=== PATIENT | male | born 1975 | race African-American/Black ===

== ENCOUNTER 2016-10-27 07:52 | Inpatient (IN) | payer OTHER ==
[2016-10-27] VITALS (7 sets, daily range): BP systolic 122–194; BP diastolic 77–113; PULSE 78–104; RESP 14–16; TEMP 98–98.4; O2SAT 92–100
[~2016-10-27] VITALS: Ht 185.4 cm; Wt 98.0 kg
[2016-10-27] MEDS ORDERED: SODIUM CHLOR 0.9% 1000 ML INJ 1,000 ML IV ONE ×2 (07:59→08:29)
[2016-10-27] MEDS ORDERED: SODIUM CHLORIDE 0.9% FLUSH 5 ML FLUSH IVF PRN (08:00)
--- NOTE | 2016-10-27 08:06 | PD ---
HPI Chief Complaint: hyperglycemia Time Seen by Provider: 07:54 Travel History International Travel<30 days: No Contact w/Intl Traveler<30days: No Traveled to known affect area: No History of Present Illness HPI The patient is a 41-year-old after Ethiopian male who presents emergency department via EMS for hyperglycemia and possible seizure. According to EMS the patient is on vacation from [place], [place], and forgot his insulin. The patient then had seizure-like activity, according to family, prior to arrival. When EMS arrived they stated the patient was postictal and his glucose read as "high". The patient states he cannot recall what type of insulin or the dose of the insulin he takes, but does note a history of diabetes. He also notes a history of hypertension, but cannot recall the name of his antihypertensive medication. The patient does currently complain of a headache, but denies any photophobia, visual changes, or neck pain. The patient denies any chest pain came and shortness of breath, nausea, vomiting, or abdominal pain. The patient does have a history of bilateral lower extremity surgeries with partial amputation of the feet bilaterally. The symptoms are moderate, there are no known alleviating or exacerbating factors. [facility] Past Medical History Narrative Medical Diabetes, hypertension Past Surgical History Narrative Surgical Bilateral partial foot amputation Social History Alcohol Use: No Tobacco Use: No Substance Use: No Allergies-Medications (Allergen,Severity, Reaction): Coded Allergies: No Known Allergies (Unverified , 10/27/16) Reported Meds & Prescriptions Reported Meds & Active Scripts Active Reported Hydralazine (Hydralazine HCl) 50 Mg Tab 50 Mg PO BID Take with a meal Phenergan (Promethazine HCl) 25 Mg Tab 25 Mg PO ONCE Novolog Inj (Insulin Aspart) 1,000 Unit/10 Ml Vial 1 Units SQ ONCE Levemir Inj (Insulin Detemir) 1,000 unit/ 10 ML Vial 10 Units SQ BID Do not mix with any other Insulin. Review of Systems Except as stated in HPI: all other systems reviewed are Neg General / Constitutional: No: Fever Eyes: No: Blurred Vision, Photophobia HENT: Positive: Headaches, No: Neck Pain Cardiovascular: No: Chest Pain or Discomfort Respiratory: No: Shortness of Breath Gastrointestinal: No: Nausea, Vomiting, Abdominal Pain Musculoskeletal: Positive: Other (bilateral partial foot amputation's), No: Weakness Neurologic: Positive: Headache, Seizures (possible seizure earlier today according to EMS, denies history of seizures) Physical Exam Narrative GENERAL: Awake, slightly postictal, 41-year-old Susan male who appears his stated age and is in no acute respiratory distress. SKIN: Warm and dry. HEAD: Atraumatic. Normocephalic. EYES: Pupils equal and round. Pupils are 3 mm bilateral reactive. EOMs are intact. Patient is able to see fingers at a distance of 2 feet without difficulty. ENT: No nasal bleeding or discharge. Mucous membranes pink and moist. NECK: Trachea midline. No JVD. CARDIOVASCULAR: Regular rate and rhythm. No murmur appreciated. RESPIRATORY: No accessory muscle use. Clear to auscultation. Breath sounds equal bilaterally. GASTROINTESTINAL: Abdomen soft, non-tender, nondistended. No rebound tenderness. MUSCULOSKELETAL: Bilateral lower extremity partial foot amputation's. Patient is able flex the hips and knees bilaterally. Patient has full use of the upper extremities. NEUROLOGICAL: Awake and alert. No obvious cranial nerve deficits. Motor grossly within normal limits. Normal speech. Patient is oriented to person and place, but cannot recall the year or his current medications. PSYCHIATRIC: Appropriate mood and affect; insight and judgment normal. Data Data Last Documented VS Vital Signs Date Time Temp Pulse Resp B/P Pulse Ox O2 Delivery O2 Flow Rate FiO2 10/27/16 09:00 98.0 98 16 194/109 92 Room Air Orders Electrocardiogram (10/27/16 07:59) Complete Blood Count With Diff (10/27/16 07:59) Comprehensive Metabolic Panel (10/27/16 07:59) Magnesium (Mg) (10/27/16 07:59) Beta Hydroxybutyrate (Acetone) (10/27/16 07:59) Lactic Acid (10/27/16 07:59) Urinalysis - C+S If Indicated (10/27/16 07:59) Chest, Single Ap (10/27/16 07:59) Blood Gas Venous (Vbg) (10/27/16 07:59) Blood Glucose (10/27/16 07:59) Blood Glucose (10/27/16 08:59) Ecg Monitoring (10/27/16 07:59) Iv Access Insert/Monitor (10/27/16 07:59) Oximetry (10/27/16 07:59) NPO (10/27/16 07:59) Sodium Chlor 0.9% 1000 Ml Inj (Ns 1000 M (10/27/16 07:59) Sodium Chlor 0.9% 1000 Ml Inj (Ns 1000 M (10/27/16 08:29) Sodium Chloride 0.9% Flush (Ns Flush) (10/27/16 08:00) Troponin I (10/27/16 07:59) Lipase (10/27/16 07:59) Ct Brain W/O Iv Contrast(Rout) (10/27/16 ) Insulin Human Regular Inj (Novolin R Inj (10/27/16 09:15) ^ Notify Dr: Other (10/27/16 09:06) Bedside Glucose .As Directed (10/27/16 09:06) ^ Hypoglycemia Cc <80 Mg/Dl (10/27/16 09:06) Insulin Regular (Iv Infusion) (Novolin R (10/27/16 09:15) Dextrose 50% In [place] (Vial) Inj (D50w (Vi (10/27/16 09:15) Misc Information (10/27/16 09:15) Admit Order (Ed Use Only) (10/27/16 09:35) Labs Laboratory Tests Test 10/27/16 10/27/16 08:10 09:20 White Blood Count 4.9 TH/MM3 Red Blood Count 3.96 MIL/MM3 Hemoglobin 10.9 GM/DL Hematocrit 32.3 % Mean Corpuscular Volume 81.5 FL Mean Corpuscular Hemoglobin 27.6 PG Mean Corpuscular Hemoglobin 33.8 % Concent Red Cell Distribution Width 13.4 % Platelet Count 197 TH/MM3 Mean Platelet Volume 10.5 FL Neutrophils (%) (Auto) 62.4 % Lymphocytes (%) (Auto) 23.7 % Monocytes (%) (Auto) 10.8 % Eosinophils (%) (Auto) 2.2 % Basophils (%) (Auto) 0.9 % Neutrophils # (Auto) 3.0 TH/MM3 Lymphocytes # (Auto) 1.2 TH/MM3 Monocytes # (Auto) 0.5 TH/MM3 Eosinophils # (Auto) 0.1 TH/MM3 Basophils # (Auto) 0.0 TH/MM3 CBC Comment DIFF FINAL Differential Comment Blood Gas Puncture Site RW Blood Gas Patient Temperature 98.6 Venous Blood pH 7.37 Venous Blood Partial Pressure 45 mmHg CO2 Venous Blood Partial Pressure 62 mmHg O2 Venous Blood HCO3 26 mmol/L Venous Blood Oxygen Saturation 88 % Venous Blood Oxygen Content 14.0 Vol % Venous Blood Base Excess 1.0 mmol/L Oxygen Delivery Device RA Sodium Level 130 MEQ/L Potassium Level 3.8 MEQ/L Chloride Level 92 MEQ/L Carbon Dioxide Level 25.7 MEQ/L Anion Gap 12 MEQ/L Blood Urea Nitrogen 26 MG/DL Creatinine 2.37 MG/DL Estimat Glomerular Filtration 30 ML/MIN Rate Random Glucose 705 MG/DL Lactic Acid Level 3.3 mmol/L Calcium Level 7.8 MG/DL Magnesium Level 2.1 MG/DL Total Bilirubin 0.3 MG/DL Aspartate Amino Transf 10 U/L (AST/SGOT) Alanine Aminotransferase 13 U/L (ALT/SGPT) Alkaline Phosphatase 152 U/L Troponin I 0.02 NG/ML Total Protein 5.6 GM/DL Albumin 2.1 GM/DL Lipase 362 U/L B-Hydroxybutyrate 0.13 MMOL/L Urine Color STRAW Urine Turbidity CLEAR Urine pH 6.5 Urine Specific [place] 1.016 Urine Protein 300 mg/dL Urine Glucose (UA) 1000 mg/dL Urine Ketones NEG mg/dL Urine Occult Blood TRACE Urine Nitrite NEG Urine Bilirubin NEG Urine Urobilinogen LESS THAN 2.0 MG/DL Urine Leukocyte Esterase NEG Urine RBC 1 /hpf Urine WBC 1 /hpf Microscopic Urinalysis Comment CULT NOT INDICATED Urine Opiates Screen NEG Urine Barbiturates Screen NEG Urine Amphetamines Screen NEG Urine Benzodiazepines Screen NEG Urine Cocaine Screen NEG Urine Cannabinoids Screen NEG MDM Medical Decision Making Medical Screen Exam Complete: Yes Emergency Medical Condition: Yes Medical Record Reviewed: Yes Interpretation(s) EKG reveals sinus rhythm with a rate in 99. Nonspecific T wave changes. Laboratory Tests Test 10/27/16 08:10 White Blood Count 4.9 TH/MM3 Red Blood Count 3.96 MIL/MM3 Hemoglobin 10.9 GM/DL Hematocrit 32.3 % Mean Corpuscular Volume 81.5 FL Mean Corpuscular Hemoglobin 27.6 PG Mean Corpuscular Hemoglobin 33.8 % Concent Red Cell Distribution Width 13.4 % Platelet Count 197 TH/MM3 Mean Platelet Volume 10.5 FL Neutrophils (%) (Auto) 62.4 % Lymphocytes (%) (Auto) 23.7 % Monocytes (%) (Auto) 10.8 % Eosinophils (%) (Auto) 2.2 % Basophils (%) (Auto) 0.9 % Neutrophils # (Auto) 3.0 TH/MM3 Lymphocytes # (Auto) 1.2 TH/MM3 Monocytes # (Auto) 0.5 TH/MM3 Eosinophils # (Auto) 0.1 TH/MM3 Basophils # (Auto) 0.0 TH/MM3 CBC Comment DIFF FINAL Differential Comment Blood Gas Puncture Site RW Blood Gas Patient Temperature 98.6 Venous Blood pH 7.37 Venous Blood Partial Pressure 45 mmHg CO2 Venous Blood Partial Pressure 62 mmHg O2 Venous Blood HCO3 26 mmol/L Venous Blood Oxygen Saturation 88 % Venous Blood Oxygen Content 14.0 Vol % Venous Blood Base Excess 1.0 mmol/L Oxygen Delivery Device RA Sodium Level 130 MEQ/L Potassium Level 3.8 MEQ/L Chloride Level 92 MEQ/L Carbon Dioxide Level 25.7 MEQ/L Anion Gap 12 MEQ/L Blood Urea Nitrogen 26 MG/DL Creatinine 2.37 MG/DL Estimat Glomerular Filtration 30 ML/MIN Rate Random Glucose 705 MG/DL Lactic Acid Level 3.3 mmol/L Calcium Level 7.8 MG/DL Magnesium Level 2.1 MG/DL Total Bilirubin 0.3 MG/DL Aspartate Amino Transf 10 U/L (AST/SGOT) Alanine Aminotransferase 13 U/L (ALT/SGPT) Alkaline Phosphatase 152 U/L Troponin I 0.02 NG/ML Total Protein 5.6 GM/DL Albumin 2.1 GM/DL Lipase 362 U/L B-Hydroxybutyrate 0.13 MMOL/L Differential Diagnosis Differential diagnosis includes new onset seizure, hyperglycemia, hypoglycemia, intracranial hemorrhage, dehydration, syncope, arrhythmia. Narrative Course IV was established, labs were drawn and sent, and the patient was placed on cardiac telemetry monitoring and continuous pulse oximetry monitoring. EKG was ordered and interpreted. CT the brain was ordered. Bedside Accu-Chek read "high", therefore, the patient was administered 2 L of IV fluids. VBG was obtained. VBG is unremarkable, no evidence of acidosis. Beta hydroxy and gap are normal, not DKA. However, patient's sugar was over 700, therefore, patient was administered insulin intravenously and will be placed on a not DKA insulin drip. I believe once the patient's sugars are less than 300 and he receives his normal insulin dose and is able to eat, patient can go home. His creatinine was elevated at 2.37, however, he has a history of renal insufficiency and has been seen by nephrology in the past. I discussed the patient with the on-call physicians who agrees with admission. Physician Communication Physician Communication The patient was placed on insulin drip, therefore, will need ICU. The on-call residents were paged, discussed the patient with Dr. Montes who agrees with admission. Diagnosis Primary Impression: Hyperglycemia due to type 1 diabetes mellitus Additional Impressions: Chronic renal insufficiency Qualified Code: N18.9 - Chronic renal insufficiency, unspecified stage Seizure Admitting Information Admitting Physician Requests: Admit Condition: Stable Jonatan Moreno MD Oct 27, 2016 08:06
[2016-10-27 08:14] LABS: BLOOD GAS VENOUS HCO3 26 mmol/L (22-26); BLOOD GAS VENOUS O2 HGB SAT 88 % (70-76); BLOOD GAS VENOUS PCO2 45 mmHg (44-48); BLOOD GAS VENOUS PO2 62 mmHg (35-40); BLOOD GAS VENOUS pH 7.37 (7.360-7.400); CRITICAL VALUE NO; DRAW SITE RW; OXYGEN DEVICE RA; STAT YES; TEMP CORR TO 98.6
[2016-10-27 08:30] LABS: BASOPHIL % 0.9 % (0.0-2.0); EOSINOPHIL # 0.1 TH/MM3 (0-0.4); EOSINOPHIL % 2.2 % (0.0-4.0); HEMATOCRIT 32.3 % (39.0-51.0); HEMO FLAGS DIFF FINAL; LYMPH % 23.7 % (9.0-44.0); LYMPHOCYTE # 1.2 TH/MM3 (1.0-4.8); MEAN CELL VOLUME 81.5 FL (80.0-100.0); MEAN CORPUSCULAR HEMOGLOBIN 27.6 PG (27.0-34.0); MEAN CORPUSCULAR HGB CONC 33.8 % (32.0-36.0); MONO % 10.8 % (0.0-8.0); NEUT % 62.4 % (16.0-70.0); PLATELET COUNT 197 TH/MM3 (150-450); RED BLOOD COUNT 3.96 MIL/MM3 (4.50-5.90); RED CELL DISTRIBUTION WIDTH 13.4 % (11.6-17.2); WHITE BLOOD COUNT 4.9 TH/MM3 (4.0-11.0)
--- NOTE | 2016-10-27 08:35 | RADRPT ---
EXAM DATE/TIME: 10/27/2016 08:21 [facility] COMPARISON: No previous studies available for comparison. INDICATIONS : Syncopal episode today MEDICAL HISTORY : None. SURGICAL HISTORY : None. ENCOUNTER: Initial ACUITY: 1 day PAIN SCORE: 0/10 LOCATION: Bilateral chest FINDINGS: A single view of the chest demonstrates the lungs to be symmetrically aerated without evidence of mas s, infiltrate or effusion. The cardiomediastinal contours are unremarkable. Osseous structures are intact. CONCLUSION: Normal examination. Wil Wyman MD on October 27, 2016 at 8:33 Board Certified Radiologist. This report was verified electronically.
[2016-10-27 08:52] LABS: ALKALINE PHOSPHATASE 152 U/L (45-117); ALT (GPT) 13 U/L (12-78); ANION GAP 12 MEQ/L (5-15); AST (GOT) 10 U/L (15-37); BETA-HYDROXYBUTYRATE 0.13 MMOL/L (0.00-0.39); BICARBONATE 25.7 MEQ/L (21.0-32.0); BLOOD UREA NITROGEN 26 MG/DL (7-18); CHLORIDE 92 MEQ/L (98-107); GLOMERULAR FILTRATION RATE 30 ML/MIN (>89); MAGNESIUM 2.1 MG/DL (1.5-2.5); POTASSIUM 3.8 MEQ/L (3.5-5.1); SODIUM (NA) 130 MEQ/L (136-145); TOTAL BILIRUBIN ADULT 0.3 MG/DL (0.2-1.0)
--- NOTE | 2016-10-27 08:59 | RADRPT ---
EXAM DATE/TIME: 10/27/2016 08:27 [facility] COMPARISON: No previous studies available for comparison. INDICATIONS : New onset of seizures, headache. RADIATION DOSE: 47.98 CTDIvol (mGy) MEDICAL HISTORY : Diabetes mellitus type 2. Hypertension. SURGICAL HISTORY : None. ENCOUNTER: Initial ACUITY: 1 day PAIN SCALE: 3/10 LOCATION: Bilateral frontal TECHNIQUE: Multiple contiguous axial images were obtained of the head. Using automated exposure control and adj ustment of the mA and/or kV according to patient size, radiation dose was kept as low as reasonably a chievable to obtain optimal diagnostic quality images. FINDINGS: CEREBRUM: The ventricles are normal for age. No evidence of midline shift, mass lesion, hemorrhage or acute in farction. No extra-axial fluid collections are seen. POSTERIOR FOSSA: The cerebellum and brainstem are intact. The 4th ventricle is midline. The cerebellopontine angle i s unremarkable. EXTRACRANIAL: The visualized portion of the orbits is intact. SKULL: The calvaria is intact. No evidence of skull fracture. CONCLUSION: Normal examination. Wil Wyman MD on October 27, 2016 at 8:58 Board Certified Radiologist. This report was verified electronically.
[2016-10-27] MEDS ORDERED: PROM25TA5 PO (09:07)
[2016-10-27] MEDS ORDERED: HYDR50TA15 PO (09:07)
[2016-10-27] MEDS ORDERED: NOVOLOGP2 SQ (09:07)
[2016-10-27] MEDS ORDERED: LEVEMIR SQ (09:07)
[2016-10-27] MEDS ORDERED: DEXTROSE 50% IN WATER 50 ML VIAL(D50) IV PUSH PRN ×3 (09:15→14:00)
[2016-10-27] MEDS ORDERED: MISC INFORMATION XX ONE (09:15)
[2016-10-27] MEDS ORDERED: INSULIN HUMAN REGULAR 1,000 UNITS/10 ML VIAL IV PUSH ONE (09:15)
[2016-10-27] MEDS ORDERED: INSULIN REGULAR (IV INFUSION) 100 UNITS in SODIUM CHLORIDE 0.9% INJ 99 ML IV SCH (09:15)
[2016-10-27 09:43] LABS: BLOOD, URINE TRACE (NEG); GLUCOSE,URINE 1000 mg/dL (NEG); KETONE, URINE NEG (NEG); NITRITE,URINE NEG (NEG); PH, URINE 6.5 (5.0-8.5)
[2016-10-27 09:45] LABS: COMMENT (UR) CULT NOT INDICATED; CULTURE IF INDICATED CULT NOT INDICATED; URINE COLOR STRAW (YELLW/STRAW)
--- NOTE | 2016-10-27 09:50 | HHI.HP ---
[facility] Service Family Medicine Primary Care Physician Non-Staff Admission Diagnosis hypoglycemia, BGgreater than 700, chronic renal insufficiency, seiz Diagnoses: Chief Complaint: Seizure International Travel<30 Days: No Contact w/Intl Traveler<30days: No Known Affected Area: No History of Present Illness Patient is a 41-year-old male with a past medical history significant for type 2 diabetes mellitus and hypertension who presents today via [facility] for seizure and hyperglycemia. Patient states that he had a headache last night before he went to bed. Sometime after he woke up this morning, he thought his sugar was low and so he drank a glass of orange juice. He did not check his sugar this morning before drinking a glass of orange juice. He had last checked his sugar the night before and found it to be around 219. After drinking a glass of orange juice, he felt dizzy and went to the bedroom to lay down. His states that he had difficulty making it to the bedroom. Sometime after he laid down, his daughter found him to be tremoring, tensed up, and non-responsive. This lasted for 2 full minutes per the patient's . She states that he was "shaking all over" and that his arms were also tensed. He did not lose function of bowel or bladder and he did not bite his tongue. He was confused after the episode. The last thing he remembers is making breakfast after drinking his orange juice. He did not have any chest pain, palpitations, shortness of breath, nausea, or vomiting. Of note, he had a similar seizure 6 years ago that he and his attribute to hypoglycemia. He did not take any of his medications today. Patient states that he is poorly compliant with his insulin and his diet. His poorly-controlled diabetes has led to amputation of all of his toes. Review of Systems Constitutional: COMPLAINS OF: Fatigue, DENIES: Fever, Chills Eyes: DENIES: Blurred vision Ears, nose, mouth, throat: DENIES: Nasal discharge Respiratory: DENIES: Cough, Shortness of breath Cardiovascular: DENIES: Chest pain, Palpitations Gastrointestinal: DENIES: Abdominal pain, Diarrhea, Nausea, Vomiting Genitourinary: DENIES: Dysuria Musculoskeletal: COMPLAINS OF: Stiffness Neurologic: COMPLAINS OF: Headache, Seizures, Tremor, DENIES: Abnormal gait, Localized weakness, Paresthesias Psychiatric: COMPLAINS OF: Confusion Past Family Social History Past Medical History DM Type 2 HTN Past Surgical History Toe amputations bilaterally, 2015, 2016 Laparoscopy 2016 Reported Medications Reported Meds & Active Scripts Active Reported Hydralazine (Hydralazine HCl) 50 Mg Tab 50 Mg PO BID Take with a meal Phenergan (Promethazine HCl) 25 Mg Tab 25 Mg PO ONCE Novolog Inj (Insulin Aspart) 1,000 Unit/10 Ml Vial 1 Units SQ ONCE Levemir Inj (Insulin Detemir) 1,000 unit/ 10 ML Vial 10 Units SQ BID Do not mix with any other Insulin. Allergies: Coded Allergies: No Known Allergies (Unverified , 10/27/16) Active Ordered Medications Current Medications Medications (Trade) Dose Ordered Sig/Meenakshi Route Start Time Stop Time Status Last Admin IV Flush 2 ml 2 ml UNSCH PRN IVF 10/27/16 08:00 (NovoLIN R (IV INFUSION)/NS Inj) 100 ml @ 0 mls/hr TITRATE IV 10/27/16 09:15 (D50w (Vial) Inj) 25 ml UNSCH PRN IV PUSH 10/27/16 09:15 Family History Mother: DM type 2, HTN, Heart disease Father: Healthy Children: Healthy Social History No tobacco, alcohol, illicit drug use. Lives in [place]. On medical leave from, was working a warehouse job. Physical Exam Vital Signs Vital Signs Date Time Temp Pulse Resp B/P Pulse Ox O2 Delivery O2 Flow Rate FiO2 10/27/16 09:00 98.0 98 16 194/109 92 Room Air 10/27/16 07:52 98.4 99 16 193/113 93 Physical Exam GENERAL: This is a well-nourished, well-developed male patient , in no apparent distress. Appears drowsy. SKIN: No rashes, ecchymoses or lesions. Cool and dry. HEAD: Atraumatic. Normocephalic. No temporal or scalp tenderness. EYES: Pupils equal round and reactive. Extraocular motions intact. No scleral icterus. No injection or drainage. ENT: Nose without bleeding, purulent drainage or septal hematoma. Throat without erythema, tonsillar hypertrophy or exudate. Uvula midline. Airway patent. NECK: Trachea midline. No JVD or lymphadenopathy. Supple, nontender, no meningeal signs. CARDIOVASCULAR: Regular rate and rhythm without murmurs, gallops, or rubs. RESPIRATORY: Clear to auscultation. Breath sounds equal bilaterally. No wheezes , rales, or rhonchi. GASTROINTESTINAL: Abdomen soft, non-tender, nondistended. No hepato-splenomegaly , or palpable masses. No guarding. MUSCULOSKELETAL: Right lower extremity with trace edema, nontender to palpation. No calf tenderness. s/p amputation of all toes. NEUROLOGICAL: Awake and alert. Cranial nerves II through XII intact. Motor and sensory grossly within normal limits. Five out of 5 muscle strength in all muscle groups. Normal speech. No pronator drift. Laboratory Laboratory Tests Test 10/27/16 08:10 White Blood Count 4.9 Red Blood Count 3.96 Hemoglobin 10.9 Hematocrit 32.3 Mean Corpuscular Volume 81.5 Mean Corpuscular Hemoglobin 27.6 Mean Corpuscular Hemoglobin 33.8 Concent Red Cell Distribution Width 13.4 Platelet Count 197 Mean Platelet Volume 10.5 Neutrophils (%) (Auto) 62.4 Lymphocytes (%) (Auto) 23.7 Monocytes (%) (Auto) 10.8 Eosinophils (%) (Auto) 2.2 Basophils (%) (Auto) 0.9 Neutrophils # (Auto) 3.0 Lymphocytes # (Auto) 1.2 Monocytes # (Auto) 0.5 Eosinophils # (Auto) 0.1 Basophils # (Auto) 0.0 CBC Comment DIFF FINAL Differential Comment Blood Gas Puncture Site RW Blood Gas Patient Temperature 98.6 Venous Blood pH 7.37 Venous Blood Partial Pressure 45 CO2 Venous Blood Partial Pressure 62 O2 Venous Blood HCO3 26 Venous Blood Oxygen Saturation 88 Venous Blood Oxygen Content 14.0 Venous Blood Base Excess 1.0 Oxygen Delivery Device RA Sodium Level 130 Potassium Level 3.8 Chloride Level 92 Carbon Dioxide Level 25.7 Anion Gap 12 Blood Urea Nitrogen 26 Creatinine 2.37 Estimat Glomerular Filtration 30 Rate Random Glucose 705 Lactic Acid Level 3.3 Calcium Level 7.8 Magnesium Level 2.1 Total Bilirubin 0.3 Aspartate Amino Transf 10 (AST/SGOT) Alanine Aminotransferase 13 (ALT/SGPT) Alkaline Phosphatase 152 Troponin I 0.02 Total Protein 5.6 Albumin 2.1 Lipase 362 B-Hydroxybutyrate 0.13 Result Diagram: 10/27/16 0810 10/27/16 0810 Imaging Last Impressions Chest X-Ray 10/27/16 2087 Signed Impressions: Service Date/Time: Thursday, October 27, 2016 08:21 - CONCLUSION: Normal examination. Wil Wyman MD Head CT 10/27/16 0000 Signed Impressions: Service Date/Time: Thursday, October 27, 2016 08:27 - CONCLUSION: Normal examination. Wil Wyman MD Assessment and Plan Assessment and Plan Patient is a 41-year-old male with a past medical history significant for type 2 diabetes mellitus and hypertension who presents today via [facility] for seizure and hyperglycemia. Code Status Full Code Discussed Condition With jose Florian and Dr. Montes Problem List: (1) Hyperglycemia due to type 2 diabetes mellitus Status: Acute Plan: Patient known to be poorly compliant with diabetic diet and insulin. He has a history of amputation of all of his toes, neuropathy, and likely chronic renal disease due to poorly controlled DM type II. Today he is also presenting for seizure likely secondary to nonketotic hyperglycemia. Glucose elevated at 705 on admission B-hydroxybutyrate wnl 0.13 Mild hyponatremia of 130 K wnl at 3.8 Anion gap wnl at 12 CBC wnl, afebrile, UA negative for signs of infection, CXR wnl Lactic acid elevated at 3.3 s/p 4L NS in ED and 8 units IV Regular insulin Plan: - Insulin drip per protocol - NS @ 138ml/hr - Electrolyte replacement per protocol - Repeat BMP at 1400 - NPO for now until glucose better controlled - perioperative educator/boy's adviser consult - Case management consult - Obtain HgA1c - AM CBC/BMP - Zofran PRN nausea - Tele (2) Hypertensive urgency Status: Acute Plan: Blood pressures elevated to 193/113 on admission Patient did not take antihypertensive medications this morning Will administer home medications at this time and monitor response. If BP does not improve, will try Clonidine. (3) Seizure Status: Chronic Plan: History of similar seizure activity 6 years ago due to hypoglycemia Suspect this seizure was precipitated by hyperglycemia Head CT normal Random glucose 705 on admission Mg wnl at 2.1 Hyponatremia of 130 Plan: - UDS, alcohol level - Glycemic control as above - Hydration as above - Neuro checks Q4H - Seizure precautions (4) T2DM (type 2 diabetes mellitus) Status: Chronic Plan: On Levemir 10 units SQ BID and Novolog (unspecified dose at home) Poor compliance s/p amputation of all toes Plan: - Acute management as above - Associate Professor Of Automation/Lard Maker (5) HTN (hypertension) Status: Chronic Plan: Continue home medication hydralazine 50 mg by mouth twice a day (6) Chronic renal insufficiency Status: Chronic Plan: Creatinine 2.37, GFR 30 on admission Suspect this is chronic given poorly controlled DM type II, likely diabetic nephropathy UA significant for 1000 glucose, 300 protein No baseline for comparison s/p 4L NS in ED Plan: - Maintenance fluids with NS @ 138ml/hr - Renally dose medications - Avoid nephrotoxic agents - Continue to monitor (7) Nutrition, metabolism, and development symptoms Status: Acute Plan: Fluids: NS @ 138ml/hr Electrolytes: hyponatremia of 130 on admission, continue to monitor and replete as needed Nutrition: NPO DVT PPx: Lovenox 30mg SQ 24H Physician Certification 2 Midnight Certification Type: Admission for Inpatient Services Order for Inpatient Services The services are ordered in accordance with Medicare regulations or non- Medicare payer requirements, as applicable. In the case of services not specified as inpatient-only, they are appropriately provided as inpatient services in accordance with the 2-midnight benchmark. Estimated LOS (days): 2 days is the estimated time the patient will need to remain in the hospital, assuming treatment plan goals are met and no additional complications. Post-Hospital Plan: Home Problem Qualifiers (1) Hyperglycemia due to type 2 diabetes mellitus: Qualified Code: E11.65 - Type 2 diabetes mellitus with hyperglycemia, with long -term current use of insulin (2) T2DM (type 2 diabetes mellitus): Qualified Code: E11.59 - Type 2 diabetes mellitus with other circulatory complication, with long-term current use of insulin (3) HTN (hypertension): Qualified Code: I10 - Essential hypertension (4) Chronic renal insufficiency: Qualified Code: N18.9 - Chronic renal insufficiency, unspecified stage Tina Bhatt MD R2 Oct 27, 2016 09:50
[2016-10-27] MEDS ORDERED: SODIUM CHLOR 0.9% 1000 ML INJ 1,000 ML IV SCH (10:00)
[2016-10-27] MEDS ORDERED: SODIUM CHLORIDE 0.9% FLUSH 5 ML FLUSH FLUSH PRN (10:00)
[2016-10-27] MEDS ORDERED: ONDANSETRON HCL 4 MG/2 ML VIAL IVP PRN (10:00)
[2016-10-27] MEDS ORDERED: NALOXONE HCL 0.4 MG/ML AMP IV PRN (10:00)
[2016-10-27] MEDS ORDERED: ACETAMINOPHEN 325 MG TAB PO PRN (10:00)
[2016-10-27] MEDS ORDERED: SODIUM BICARBONATE 8.4% SOLN 50 MEQ/50 ML VIAL IV PRN ×2 (10:15)
[2016-10-27] MEDS ORDERED: cloNIDine HCL 0.1 MG TAB PO ONE (10:15)
[2016-10-27] MEDS ORDERED: SODIUM PHOSPHATE INJ 15 MMOL in SODIUM CHLORIDE 0.9% INJ 100 ML IV PRN (10:15)
[2016-10-27] MEDS ORDERED: POTASSIUM CHLOR 20 MEQ PREMIX 100 ML IV PRN ×6 (10:15)
[2016-10-27] MEDS ORDERED: CHLORHEXIDINE GLUCONATE 2 % 1 PACK (2 CLOTHS) TOP PRN (10:15)
[2016-10-27] MEDS ORDERED: GLUCAGON 1 MG/ML VIAL OTHER PRN ×2 (10:15→14:00)
[2016-10-27] MEDS ORDERED: MISCELLANEOUS NURSING INFORMATION XX SCH (10:15)
[2016-10-27] MEDS ORDERED: POTASSIUM CHLOR 40 MEQ PREMIX 100 ML IV PRN ×2 (10:15)
[2016-10-27] MEDS ORDERED: ENOXAPARIN SODIUM 30 MG/0.3 ML SYRINGE SQ SCH (11:00)
[2016-10-27 11:15] LABS: AMPHETAMINE, URINE NEG (NEG); BARBITURATES, URINE NEG (NEG); COCAINE, URINE NEG (NEG)
[2016-10-27] MEDS ORDERED: hydrALAZINE HCL 50 MG TAB PO SCH (11:30)
[2016-10-27] MEDS ORDERED: PROMETHAZINE HCL 25 MG TAB PO ONE (11:30)
[2016-10-27 12:00] LABS: URIC ACID 6.3 MG/DL (2.6-7.2)
[2016-10-27] MEDS ORDERED: INSULIN DETEMIR 100 UNITS/ML VIAL SQ ONE (14:00)
[2016-10-27] MEDS ORDERED: DC Insulin drip 2 hrs post basal insulin dose XX ONE (14:00)
[2016-10-27] MEDS ORDERED: DC previous DKA orders (HMC 1917) XX ONE (14:00)
--- NOTE | 2016-10-27 14:43 | EKG ---
Date Performed: 10/27/2016 Time Performed: 08:46:18 PTAGE: 41 years EKG: Sinus rhythm NONSPECIFIC T-WAVE ABNORMALITY Nonspecific T-wave abnormality is probably early repolarization Clini simi correlation is recommended BORDERLINE ECG NO PREVIOUS TRACING DOCTOR: Demetrius Beht Interpretating Date/Time 10/27/2016 14:43:32
[2016-10-27] MEDS ORDERED: DEXT 5%-NACL 0.45% 1000 ML INJ 1,000 ML IV SCH (15:30)
[2016-10-27] MEDS ORDERED: INSULIN ASPART SUPPLEMENTAL SCALE SQ SCH (16:00)
[2016-10-27 16:04] LABS: BICARBONATE 28.9 MEQ/L (21.0-32.0); POTASSIUM 3.1 MEQ/L (3.5-5.1)
[2016-10-27] MEDS ORDERED: SODIUM CHLORIDE 0.9% FLUSH 5 ML FLUSH FLUSH SCH (21:00)
[2016-10-28] MEDS ORDERED: CHLORHEXIDINE GLUCONATE 2 % 1 PACK (2 CLOTHS) TOP SCH (04:00)
[2016-10-28 11:24] LABS: HEMOGLOBIN A1a 1.1 %; HEMOGLOBIN Ao 72.1 %; HEMOGLOBIN F 2.3 %; HEMOGLOBIN LA1C 3.2 %; HEMOGLOBIN P3 6.5 %
== END 2016-10-27 16:35 | disposition left against medical advice (07) | DRG 638 ==
LOC: NEPE 07:52 → NEDA 09:37 → HIMN 12:35
PROVIDERS: ADMIT Family Medicine; ATTEND Family Medicine
DX: E11.65 Type 2 diabetes mellitus with hyperglycemia (principal); E87.1 Hypo-osmolality and hyponatremia; E11.42 Type 2 diabetes mellitus with diabetic polyneuropathy; E11.22 Type 2 diabetes mellitus with diabetic chronic kidney disease; R56.9 Unspecified convulsions; I16.0 Hypertensive urgency; I12.9 Hypertensive chronic kidney disease with stage 1 through stage 4 chronic kidney disease, or unspecified chronic kidney disease; N18.9 Chronic kidney disease, unspecified; Z79.4 Long term (current) use of insulin; Z89.412 Acquired absence of left great toe; Z89.411 Acquired absence of right great toe; Z89.422 Acquired absence of other left toe(s); Z89.421 Acquired absence of other right toe(s); Z91.19 Patient's noncompliance with other medical treatment and regimen
CPT/HCPCS: 70450; 71010; 80048; 80053; 80307; 80320; 81001; 82010; 82550; 82805; 82948; 83036; 83605; 83690; 83735; 84244; 84484; 84550; 85025; 93005; 96374; J1650; J1815; J1817; J7030; Q0169